=== PATIENT | female | born 1930 | race Caucasian/White ===

== ENCOUNTER 2017-02-09 13:17 | Inpatient (IN) ==
[2017-02-09] MEDS ORDERED: *HR* HYDROmorphone (PF) 1 MG/ML SYRINGE IVP ONE ×2 (13:31→14:15)
[2017-02-09] MEDS ORDERED: Ondansetron 4 MG/2 ML VIAL IVP ONE ×2 (13:31→15:01)
[2017-02-09] MEDS ORDERED: 0.9 % Sodium Chloride 1,000 ML IVC ONE (13:31)
--- NOTE | 2017-02-09 13:34 | Emergency Department Note ---
Disposition Clinical Impression: Ureterolithiasis Hydronephrosis Qualifiers: Hydronephrosis type: with ureteral calculous obstruction Qualified Code(s): N13.2 - Hydronephrosis with renal and ureteral calculous obstruction Disposition: Admitted As Inpatient Condition: Good Referrals: Marcos Cornell MD [Primary Care Provider] - Forms: Work/School Release, ED Satisfaction Letter Abdominal Pain HPI - General Chief Complaint: ED Abdominal Pain Stated Complaint: R flank pain, N/V Time Seen by Provider: 02/09/17 13:24 Source: patient Mode of arrival: wheelchair Limitations: no limitations Nursing Notes Reviewed: Yes Vital Signs Reviewed: Yes - History of Present Illness HPI Narrative: 86-year-old female history of vitamin D deficiency, previous kidney stone who presents to the ER with a chief complaint of back, right flank and right-sided abdominal pain with nausea and vomiting. Patient reports she woke up this morning to go to [employer] and started having right-sided back pain that wrapped around into her right abdomen. She was nauseated and had vomiting at that time. She denies any recent illnesses or fevers. No sick contacts. No history of intra-abdominal surgery. She does report a history of kidney stones many years ago. She denies any change in her bowel or bladder function or dysuria, hematuria or change in frequency. No other complaints. Pt Subjective Complaint: abdominal pain, flank pain Onset (ago): hour(s) Consistency: constant Location: R flank Pain Severity: severe Pain Scale: 10 Quality: other (Pain) Radiation: RLQ Improves with: nothing Worsens with: other (Palpation) Associated symptoms: Reports: nausea, vomiting. Denies: diarrhea, fever, dysuria Treatments prior to arrival: NSAIDs - Related Data Home Medications Medication Instructions Recorded Confirmed Calcium Carbonate/Vitamin D3 1 each PO DAILY 12/09/16 12/09/16 [Calcium 600-Vit D3 200 Tablet] Fexofenadine HCl 180 mg PO DAILY PRN 12/09/16 12/09/16 Fluticasone Propionate Nasal 50 mcg NS DAILY PRN 12/09/16 12/09/16 [Flonase] Ibuprofen [Advil] 200 mg PO 1-2XD PRN 12/09/16 12/09/16 Previous Rx's Medication Instructions Recorded Meclizine HCl [Bonine] 25 mg PO TID PRN #30 tab 11/20/15 Azithromycin [Azithromycin 6-Tab 250 mg PO DAILY #6 tab 12/09/16 Pack] Meclizine [Antivert] 25 mg PO TID PRN #30 tablet 12/09/16 Ondansetron ODT [Zofran ODT] 4 mg SL Q8HR PRN #9 tab.rapdis 12/09/16 Allergies Allergy/AdvReac Type Severity Reaction Status Date / Time No Known Allergies Allergy Verified 11/20/15 10:31 All systems ED: reviewed and negative except as stated. Constitutional: Denies: fever Cardiovascular: Denies: chest pain Respiratory: Denies: dyspnea Gastrointestinal: Reports: abdominal pain, nausea, vomiting. Denies: diarrhea Genitourinary: Denies: urgency, dysuria, frequency, hematuria Musculoskeletal: Reports: back pain (Right flank) Abdominal Pain PMH - Past Medical History Medical history: Reports: other Female Surgical History: Reports: no surgical history - Social History Smoking status: Never smoker Alcohol use: Reports: none Drug use: Reports: none Physical Exam - General Limitations: no limitations General appearance: alert, in no apparent distress - Head Head exam: atraumatic, normocephalic, normal inspection - Eye Eye exam: Present: normal appearance, EOMI - ENT ENT exam: normal exam - Neck Neck exam: Present: normal inspection - Chest Chest inspection: Present: normal inspection, symmetric chest wall rise - Respiratory Respiratory exam: Present: normal lung sounds bilaterally - Cardiovascular Cardiovascular exam: Present: regular rate, normal rhythm, normal heart sounds - Abdominal Exam Abdominal exam: Present: soft, tenderness (Tenderness to palpation in the right lower quadrant and right midabdomen), other (Tenderness to palpation over the right flank). Absent: distention, guarding, rigidity - Extremities Exam Extremities exam: Present: normal inspection, full ROM - Expanded Upper Extremity Exam Shoulder exam: Present: normal inspection, full ROM Arm exam: Present: normal inspection, full ROM Elbow exam: Present: normal inspection, full ROM Forearm/Wrist exam: Present: normal inspection, full ROM Hand exam: Present: normal inspection, full ROM - Expanded Lower Extremity Exam Hip/Pelvis exam: Present: normal inspection, full ROM Upper leg exam: Present: normal inspection, full ROM Knee exam: Present: normal inspection, full ROM Lower leg exam: Present: normal inspection, full ROM Ankle exam: Present: normal inspection, full ROM Foot/toe exam: Present: normal inspection, full ROM - Back Exam Back exam: Present: CVA tenderness (R) - Neurological Exam Neurological exam: Present: alert - Psychiatric Psychiatric exam: Present: normal affect, normal mood - Skin Skin exam: Present: warm, dry, intact, normal color Course Course Narrative: Patient seen and examined. Vital signs reviewed. Her pain is right flank and right sided abdominal pain. She had vomited prior to me walking into the room. We will get a CT scan of the abdomen and pelvis as well as labs and urinalysis. We will give her IV fluids pain medication and some nausea medication. Disposition pending. - Reevaluation(s) Reevaluation #1: Patient still having pain after her first dose of Dilaudid. Patient was reordered additional pain medication. CT scan shows an 8 mm stone at the UVJ causing significant [place]. We will discuss with urology and will likely have to admit the patient for pain control. - Consultations Consultation #1: Discussed this case with the on-call urologist Dr. Treadwell. Reported her renal stone is 8 mm at the UVJ. Renal function normal. She has continued to have pain despite multiple rounds of IV narcotics. She has had multiple episodes of vomiting requiring Zofran as well. Patient is accepted to Dr. Treadwell's service. Request to keep her NPO for now. Dr. Treadwell called back and will be in to the emergency department to evaluate the patient for potential operative intervention today. Request a preoperative EKG. Vital Signs Temperature 97.8 F 02/09/17 13:18 Pulse Rate 59 02/09/17 13:18 Respiratory Rate 18 02/09/17 13:18 Blood Pressure 176/74 02/09/17 13:18 O2 Sat by Pulse Oximetry 96 02/09/17 13:18 Temperature 97.8 F 02/09/17 13:18 Pulse Rate 66 02/09/17 14:40 Respiratory Rate 16 02/09/17 14:40 Blood Pressure 145/93 02/09/17 14:40 O2 Sat by Pulse Oximetry 97 02/09/17 14:40 Oxygen Delivery Oxygen Delivery Nasal Cannula Abdominal Pain - MDM Narrative Medical decision making narrative: 86-year-old female presents to the ER due to right flank pain and back pain that started this morning abruptly. Her CT scan here shows an 8 mm stone at the right UVJ. Creatinine is within normal limits. She urinated without collecting a sample so we gave her dose of Rocephin and we will continue to attempt to re-collect a urine. Her pain was poorly controlled despite receiving IV narcotics. Patient admitted to the urologist service for further management. - Lab Data Lab results reviewed: Yes I reviewed the patient's lab results. Result diagrams: 02/09/17 13:35 02/09/17 13:35 Lab Results 02/09/17 02/09/17 Range/Units 13:35 13:35 WBC 11.7 H (4.3-11.1) K/mcL RBC 4.71 (3.82-4.97) M/mcL Hgb 13.8 (11.5-15.4) g/dL Hct 42.7 (35.3-44.9) % MCV 90.7 (83.0-100.0) fL MCH 29.3 (28.0-33.3) pg MCHC 32.3 (31.6-35.5) g/dL RDW 12.7 (11.5-14.5) % Plt Count 260 (140-400) K/mcL MPV 10.0 (9.4-12.4) fL Immature Gran % 0.3 (0-4) % Seg Neutrophils % 88.9 % Lymphocytes % 6.2 % Monocytes % 4.1 % Eosinophils % 0.3 % Basophils % 0.2 % Neutrophils # 10.4 H (1.6-8.9) K/mcL Lymphocytes # 0.7 (0.6-4.6) K/mcL Monocytes # 0.5 (0.0-1.3) K/mcL Eosinophils # 0.0 (0.0-0.6) K/mcL Basophils # 0.0 (0.0-0.2) K/mcL Sodium 141 (136-145) mEq/L Potassium 4.1 (3.5-4.5) mEq/L Chloride 106 (98-109) mEq/L Carbon Dioxide 24 (19-29) mEq/L BUN 23 H (7-20) mg/dL Creatinine 0.90 (0.57-1.11) mg/dL Est GFR ( Amer) > 60 (> 60) Est GFR (Non-Af Amer) 59 L (> 60) BUN/Creatinine Ratio 26 (6-26) Glucose 125 H (70-99) mg/dL Calculated Osmolality 297 (280-300) Calcium 9.6 (8.6-10.8) mg/dL Total Bilirubin 0.6 (0.2-1.2) mg/dL Direct Bilirubin 0.2 (0.0-0.5) mg/dL Indirect Bilirubin 0.4 (0.0-1.2) mg/dL AST 21 (5-34) Units/L ALT 16 (0-55) Units/L Alkaline Phosphatase 68 (38-126) Units/L Serum Total Protein 7.0 (6.0-8.3) g/dL Albumin 4.1 (3.5-5.0) g/dL Globulin 2.9 (2.4-3.5) g/dL Albumin/Globulin Ratio 1.4 (1.1-2.2) Lipase 31 (8-78) Units/L - Radiology Data Radiology results reviewed: Yes I reviewed the patient's radiology results. Abdomen/Pelvis CT 02/09/17 13:32 IMPRESSION: 8 mm calculus in the distal right ureter causing moderate to severe right hydroureteronephrosis. Several additional nonobstructing calculi in the right kidney. Few nonobstructing calculi in the left kidney. Severe sigmoid diverticulosis without diverticulitis. Bilateral pars defects at L4 with grade 2 spondylolisthesis. Normal appendix. D/ / Toño Dixon MD / Toño Dixon MD Interpreting Provider: Toño Dixon MD - EKG Data EKG attestation: Yes I reviewed and interpreted this EKG. EKG results narrative: EKG demonstrates sinus rhythm with a rate of 72 bpm. Normal axis. WA interval 161 QRS duration [address] elevations or depressions. No acute ischemic findings. S.B.A.R. - S.B.A.R. Situation: Demographics, MOA Background: Presenting Complaint, Relevant PMH, Meds, & Allergies Assessment: Vital Signs, Course and respsone to treatment, Exam Concerns, Patient/Family Expectation, Pertinant Lab Results, Outstanding Labs Recommendation: Barrier(s) to disposition, Recommendation based on pending studies, treatments, or consults S.B.A.R. Report Given to: Dr. Eben Boyd Repor Time: 15:12 Attestation Statement - Attestation Attestation: I examined this patient and my medical decision-making was reviewed with the OPTICAL MECHANIC APPRENTICE/PA/Advanced Practice Nurse/Resident Physician. I agree with the documented findings, disposition and treatment plan as described except to the extent set forth below.
[2017-02-09 13:44] LABS: Basophils % 0.2 %; Eosinophils % 0.3 %; Hematocrit 42.7 % (35.3-44.9); Hemoglobin 13.8 g/dL (11.5-15.4); Immature Granulocytes % 0.3 % (0-4); Lymphocytes # 0.7 K/mcL (0.6-4.6); Lymphocytes % 6.2 %; Mean Corpuscular HGB Conc 32.3 g/dL (31.6-35.5); Mean Corpuscular Hemoglobin 29.3 pg (28.0-33.3); Mean Corpuscular Volume 90.7 fL (83.0-100.0); Monocytes # 0.5 K/mcL (0.0-1.3); Monocytes % 4.1 %; Neutrophils # 10.4 K/mcL (1.6-8.9); Platelet Count 260 K/mcL (140-400); Red Blood Count 4.71 M/mcL (3.82-4.97); Red Cell Distribution Width 12.7 % (11.5-14.5); Segmented Neutrophils % 88.9 %
[2017-02-09 13:59] LABS: Alanine Aminotransferase 16 Units/L (0-55); Albumin 4.1 g/dL (3.5-5.0); Albumin/Globulin Ratio 1.4 (1.1-2.2); Alkaline Phosphatase 68 Units/L (38-126); Aspartate Amino Transferase 21 Units/L (5-34); BUN/Creatinine Ratio 26 (6-26); Bilirubin,Direct 0.2 mg/dL (0.0-0.5); Bilirubin,Indirect 0.4 mg/dL (0.0-1.2); Bilirubin,Total 0.6 mg/dL (0.2-1.2); Blood Urea Nitrogen 23 mg/dL (7-20); Calcium 9.6 mg/dL (8.6-10.8); Carbon Dioxide 24 mEq/L (19-29); Chloride 106 mEq/L (98-109); Globulin 2.9 g/dL (2.4-3.5); Glucose 125 mg/dL (70-99); Lipase 31 Units/L (8-78); Osmolality,Calculated 297 (280-300); Potassium 4.1 mEq/L (3.5-4.5); Sodium 141 mEq/L (136-145); eGFR For African Americans > 60 (> 60); eGFR For Non-African Americans 59 (> 60)
--- NOTE | 2017-02-09 16:01 | Urology History & Physical ---
Date of Encounter: 02/09/17 Time of Encounter: 15:59 Assessment and Plan (1) Ureteral stone with hydronephrosis Current Visit: Yes Status: Acute The patient's symptoms are severe and have been difficult to control despite Dilaudid and anti-emetics. Due to the severity of her symptoms in the emergency room we have elected to proceed to the operating room today for ureteral stent placement. The family understands that she will require a second procedure for stone removal. She will be observed overnight to verify her symptoms are better controlled prior to discharge. History of Present Illness Chief complaint: Right flank pain HPI: Ms. Caballero is a 86 year old female with a distant history of kidney stones. Presents the emergency room with severe flank pain and nausea vomiting. CT scan reveals an 8 mm ureteral calculi with hydronephrosis. White cell count at 11, 000. Renal function preserved. Difficult to control symptoms in the emergency room Past Med Surg Social Fam HX - Past Medical History Medical history: other - Social History Smoking Status: Never smoker Smokeless Tobacco Status: No Alcohol use: none Drug use: none Medications and Allergies Meclizine HCl [Bonine] 25 mg PO TID PRN #30 tab 11/20/15 [Rx] Azithromycin [Azithromycin 6-Tab Pack] 250 mg PO DAILY #6 tab 12/09/16 [Rx] Calcium Carbonate/Vitamin D3 [Calcium 600-Vit D3 200 Tablet] 1 each PO DAILY [History] Fexofenadine HCl 180 mg PO DAILY PRN 12/09/16 [History] Fluticasone Propionate Nasal [Flonase] 50 mcg NS DAILY PRN 12/09/16 [History] Ibuprofen [Advil] 200 mg PO 1-2XD PRN 12/09/16 [History] Meclizine [Antivert] 25 mg PO TID PRN #30 tablet 12/09/16 [Rx] Ondansetron ODT [Zofran ODT] 4 mg SL Q8HR PRN #9 tab.rapdis 12/09/16 [Rx] Allergies No Known Allergies Allergy (Verified 11/20/15 10:31) Review of Systems - Constitutional fatigue, malaise, weakness, no fever(s) - EENT Nose, mouth and throat: as per HPI, no dizziness - Cardiovascular no chest pain - Respiratory no cough - Gastrointestinal abdominal pain, nausea, vomiting - Genitourinary Genitourinary: dysuria, flank pain - Musculoskeletal back pain - Integumentary no erythema - Neurological no confusion - Psychiatric no anxiety - Hematologic/Lymphatic no easy bleeding - Allergic/Immunologic no throat swelling Exam Initial Vital Signs Temp Pulse Resp BP Pulse Ox 97.8 F 59 18 176/74 96 02/09/17 13:18 02/09/17 13:18 02/09/17 13:18 02/09/17 13:18 02/09/17 13:18 - General physical appearance Present: moderate distress, severe pain - Eyes Present: PERRL - ENT Present: normal nares - Neck Present: no masses - Respiratory Present: normal respiratory effort - Cardiovascular Cardiovascular exam IM: RRR - Abdomen Abdomen: Present: soft - Integumentary Present: no rash - Neurologic Present: other (to weak to sign consent). Absent: disoriented, confused Urology Results - Labs 02/09/17 13:35 02/09/17 13:35 Abnormal lab results WBC 11.7 K/mcL (4.3-11.1) H 02/09/17 13:35 Neutrophils # 10.4 K/mcL (1.6-8.9) H 02/09/17 13:35 BUN 23 mg/dL (7-20) H 02/09/17 13:35 Est GFR (Non-Af Amer) 59 (> 60) L 02/09/17 13:35 Glucose 125 mg/dL (70-99) H 02/09/17 13:35 Diabetes panel 02/09/17 Range/Units 13:35 Sodium 141 (136-145) mEq/L Potassium 4.1 (3.5-4.5) mEq/L Chloride 106 (98-109) mEq/L Carbon Dioxide 24 (19-29) mEq/L BUN 23 H (7-20) mg/dL Creatinine 0.90 (0.57-1.11) mg/dL Glucose 125 H (70-99) mg/dL Calcium 9.6 (8.6-10.8) mg/dL AST 21 (5-34) Units/L ALT 16 (0-55) Units/L Alkaline Phosphatase 68 (38-126) Units/L Albumin 4.1 (3.5-5.0) g/dL Calcium panel 02/09/17 Range/Units 13:35 Calcium 9.6 (8.6-10.8) mg/dL Albumin 4.1 (3.5-5.0) g/dL Pituitary panel 02/09/17 Range/Units 13:35 Sodium 141 (136-145) mEq/L Potassium 4.1 (3.5-4.5) mEq/L Chloride 106 (98-109) mEq/L Carbon Dioxide 24 (19-29) mEq/L BUN 23 H (7-20) mg/dL Creatinine 0.90 (0.57-1.11) mg/dL Glucose 125 H (70-99) mg/dL Calcium 9.6 (8.6-10.8) mg/dL Adrenal panel 02/09/17 Range/Units 13:35 Sodium 141 (136-145) mEq/L Potassium 4.1 (3.5-4.5) mEq/L Chloride 106 (98-109) mEq/L Carbon Dioxide 24 (19-29) mEq/L BUN 23 H (7-20) mg/dL Creatinine 0.90 (0.57-1.11) mg/dL Glucose 125 H (70-99) mg/dL Calcium 9.6 (8.6-10.8) mg/dL Total Bilirubin 0.6 (0.2-1.2) mg/dL AST 21 (5-34) Units/L ALT 16 (0-55) Units/L Alkaline Phosphatase 68 (38-126) Units/L Albumin 4.1 (3.5-5.0) g/dL All other labs normal.
[2017-02-09 16:04] LABS: Bilirubin,Urine Negative (Negative); Blood,Urine Trace (Negative); Clarity,Urine Clear (Clear); Color,Urine Yellow (Yellow); Glucose,Urine (UA) Normal (Normal); Ketones,Urine Trace mg/dL (Negative); Leukocyte Esterase,Urine Trace (Negative); Nitrite,Urine Negative (Negative); PH,Urine 7.5 pH Units (5.0-8.0); Protein,Urine Negative (Neg-Trace); Specific Gravity,Urine 1.012 (1.010-1.025); Urobilinogen,Urine Normal (Normal)
[2017-02-09 16:07] LABS: Bacteria,Urine Many per hpf (None-Few); Hyaline Casts,Urine None Seen per lpf (None-Few); Squamous Epithelial Cell,Urine Few per lpf (None-Few)
--- NOTE | 2017-02-09 16:19 | Anesthesia Evaluation PreOp ---
Date of Encounter: 02/09/17 Time of Encounter: 16:20 - Past History Planned Operation: Cystoscopy and Stent Ureteral Cardiac History: Denies any Significant Hx Pulmonary History: Denies Any Significant HX HAIR SPECIALIST History: Other (Vertigo) Other Medical History: Other (Extreme of age) Anesthesia History: No Prior Anesthetic Complications : No Alcohol Use: none Drug use: none Medications and Allergies Meclizine HCl [Bonine] 25 mg PO TID PRN #30 tab 11/20/15 [Rx] Azithromycin [Azithromycin 6-Tab Pack] 250 mg PO DAILY #6 tab 12/09/16 [Rx] Calcium Carbonate/Vitamin D3 [Calcium 600-Vit D3 200 Tablet] 1 each PO DAILY [History] Fexofenadine HCl 180 mg PO DAILY PRN 12/09/16 [History] Fluticasone Propionate Nasal [Flonase] 50 mcg NS DAILY PRN 12/09/16 [History] Ibuprofen [Advil] 200 mg PO 1-2XD PRN 12/09/16 [History] Meclizine [Antivert] 25 mg PO TID PRN #30 tablet 12/09/16 [Rx] Ondansetron ODT [Zofran ODT] 4 mg SL Q8HR PRN #9 tab.rapdis 12/09/16 [Rx] Allergies No Known Allergies Allergy (Verified 11/20/15 10:31) - Meds/Allergy Pre-op Review Medications Reviewed: Yes Allergies Reviewed: Yes Beta Blockers on Current Med List: No Anesthesia Results - Labs 02/09/17 13:35 02/09/17 13:35 Anesthesia Exam O2 Sat Height 1.52 m Weight 46.266 kg O2 Sat by Pulse Oximetry 97 O2 Sat by Pulse Oximetry 97 O2 Sat by Pulse Oximetry 96 Vital Signs Temp Pulse Resp BP Pulse Ox 97.8 F 59 18 176/74 96 02/09/17 13:18 02/09/17 13:18 02/09/17 13:18 02/09/17 13:18 02/09/17 13:18 Height: 5'0 Weight: 102 lbs NPO (# of Hours): MN Pain Scale: 0 - HEENT Pupil (Motor): Pupils equal, EOMI Mallampati: III Teeth: Normal Oral Opening: Less than or equal to 3 - HAIR SPECIALIST LOC: Oriented HAIR SPECIALIST Motor: Normal RUE, Normal LUE, Normal RLE, Normal LLE, Normal Face HAIR SPECIALIST Sensory: Normal: RUE, LUE, RLE, LLE, Face - Cardiac Rhythm: Regular Murmur: None JVD: No Carotid Bruit: No - Pulmonary Breath Sounds: bilateral Clear Respiratory Effort: Symmetrical Anesthesia Assess/Plan ASA Score: 2, E Modified Mellen Scale for Level of Consciousness: Cooperative, oriented, and tranquil Anesthetic Plan: General Monitoring Plan: Standard Monitors Recovery Plan: PACU (Discussed GA, agrees to proceed)
[2017-02-09] MEDS ORDERED: Lidocaine -MPF 2% 2 ML VIAL ONE (16:23)
[2017-02-09] MEDS ORDERED: *HR* FentaNYL (PF) 100 MCG/2 ML VIAL ONE (16:23)
[2017-02-09] MEDS ORDERED: *HR* Succinylcholine 200 MG/10 ML VIAL IVP ONE (16:23)
[2017-02-09] MEDS ORDERED: *HR* Propofol 200 MG/20 ML VIAL IVP ONE (16:23)
[2017-02-09] MEDS ORDERED: Ondansetron 4 MG/2 ML VIAL ONE (16:23)
[2017-02-09] MEDS ORDERED: Lidocaine -MPF 4% 5 ML AMPUL ONE (16:24)
--- NOTE | 2017-02-09 17:24 | Anesthesia Evaluation Post Op ---
Date of Encounter: 02/09/17 Time of Encounter: 17:30 - Vital Signs Vital Signs: Vital Signs/O2 Sat/Glucose, Most Current Temp Pulse Resp BP Pulse Ox 02/09/17 17:12 105 12 164/84 94 02/09/17 17:02 101.5 F H 110 12 167/94 96 02/09/17 16:12 18 154/76 02/09/17 14:40 66 16 145/93 97 02/09/17 13:53 70 18 167/80 97 - Lungs Lungs: Clear Ascult./Percussion - Airway Airway: Non-obstructed - Cardiovascular Regular Rate - Mental Status Mental Status: Alert & Oriented, Answers Appropriately - Pain Pain Scale: 0 - Nausea Vomiting Nausea Vomiting: Not Present - Hydration Hydration: NPO - Discharge PostOp Status: Transfer Patient to floor
[2017-02-09] MEDS ORDERED: Ondansetron 4 MG/2 ML VIAL IVP PRN (17:54)
[2017-02-09] MEDS ORDERED: Ketorolac 15 MG/ML VIAL IVP PRN (17:54)
[2017-02-09] MEDS ORDERED: Naloxone 0.4 MG/ML INJ IVP PRN (17:54)
[2017-02-09] MEDS ORDERED: Loratadine 10 MG TABLET PO PRN (17:54)
[2017-02-09] MEDS ORDERED: *HR* HYDROcodone/Acet 5/325 mg TABLET PO PRN (17:54)
[2017-02-09] MEDS ORDERED: *HR* Morphine 2 MG/ML SYRINGE IVP PRN (17:54)
[2017-02-09] MEDS ORDERED: *HR* Promethazine 25 MG/ML VIAL IVP PRN (17:54)
[2017-02-09] MEDS ORDERED: *HR* HYDROmorphone (PF) 1 MG/ML SYRINGE IVP PRN (17:54)
[2017-02-09] MEDS: 0.9 % Sodium Chloride 500 ML ONE ×2 (18:13→19:20)
[2017-02-09] MEDS ORDERED: Ibuprofen 400 MG TABLET PO PRN (18:24)
[2017-02-09] MEDS: 0.9 % Sodium Chloride 1,000 ML IVC SCH (18:58)
[2017-02-09] MEDS: Acetaminophen 325 MG TABLET PO PRN (19:02)
--- NOTE | 2017-02-09 20:57 | Operative Note ---
Date of procedure: 02/09/17 Pre-op diagnosis: Right ureteral calculi with hydronephrosis Post-op diagnosis: same Procedure: Cystoscopy. Right retrograde pyelogram. Right ureteral stent placement Anesthesia: GETA Surgeon: Fede Treadwell Tourniquet Time (Minutes): 0 Specimen: None Condition: stable Disposition: PACU Procedure in Detail: s. PROCEDURE IN DETAIL: Patient was taken back to the operating room, positioned supine on the operating table. Anesthesia was applied without complication. They were moved into dorsal lithotomy. Careful attention was maintained to cushion all pressure points for patient's safety. They were prepped and draped in sterile fashion. Time-out was performed with the proper patient and procedure. A 21-Lithuanian rigid cystoscope was inserted into the bladder without difficulty. Systematic examination of bladder revealed no abnormalities. The ureteral orifice was cannulated using a 5-Lithuanian ureteral Catheter and a retrograde pyelogram was performed using Isovue. Significant hydroureter was seen down to the distal ureter. A large amount of purulent material drained from the right ureteral orifice after placement of the ureteral cath. At that point, a zip wire was placed through the 5-Lithuanian and confirmed in the renal pelvis with fluoroscopy. I placed a 6x26 Ureteral stent over the zip wire. She had a very tortuous proximal ureter from hydroureter and the stent actually looped. A follow-up retrograde pyelogram confirmed that the stent was in the renal pelvi
[2017-02-10 03:32] LABS: Hematocrit 36.1 % (35.3-44.9); Mean Corpuscular HGB Conc 32.4 g/dL (31.6-35.5); Mean Corpuscular Hemoglobin 29.6 pg (28.0-33.3); Mean Corpuscular Volume 91.4 fL (83.0-100.0); Mean Platelet Volume 10.4 fL (9.4-12.4); Platelet Count 157 K/mcL (140-400); Red Blood Count 3.95 M/mcL (3.82-4.97)
[2017-02-10 03:34] LABS: Hemoglobin 11.7 g/dL (11.5-15.4)
[2017-02-10 04:08] LABS: Large Platelets Present (Not Present); Lymphocytes # 0.3 K/mcL (0.6-4.6); Monocytes # 0.3 K/mcL (0.0-1.3); Neutrophils # 16.4 K/mcL (1.6-8.9); Platelet Estimate Normal (Normal)
[2017-02-10] MEDS: 0.9 % Sodium Chloride 1,000 ML IVC SCH ×3 (06:56→19:55)
[2017-02-10] MEDS ORDERED: Promethazine 12.5 MG in 0.9 % Sodium Chloride 50 ML IVPB PRN (07:02)
--- NOTE | 2017-02-10 07:02 | Urology Progress Note ---
Date of Encounter: 02/10/17 Time of Encounter: 07:00 - Assessment and Plan (1) Ureteral stone with hydronephrosis Current Visit: Yes Status: Resolved Assessment and plan: s/p stent placement. low grade temperature overnight. WBC increased. acute renal insufficiency. patient not stable for discharge. continue IVF. continue ABX until culture returns. PT/OT. vitals stable this AM. Progress Note Subjective: feels better, pain is less, nausea (minimal nausea. ) Objective Initial Vital Signs Temp Pulse Resp BP Pulse Ox 97.8 F 59 18 176/74 96 02/09/17 13:18 02/09/17 13:18 02/09/17 13:18 02/09/17 13:18 02/09/17 13:18 - General physical appearance Present: well developed, no distress - Abdomen Present: soft - Labs 02/10/17 03:05 02/10/17 03:05 Diabetes panel 02/10/17 Range/Units 03:05 Sodium 141 (136-145) mEq/L Potassium 3.0 L D (3.5-4.5) mEq/L Chloride 110 H (98-109) mEq/L Carbon Dioxide 21 (19-29) mEq/L BUN 25 H (7-20) mg/dL Creatinine 1.23 H (0.57-1.11) mg/dL Glucose 101 H (70-99) mg/dL Calcium 8.0 L D (8.6-10.8) mg/dL Calcium panel 02/10/17 Range/Units 03:05 Calcium 8.0 L D (8.6-10.8) mg/dL Pituitary panel 02/10/17 Range/Units 03:05 Sodium 141 (136-145) mEq/L Potassium 3.0 L D (3.5-4.5) mEq/L Chloride 110 H (98-109) mEq/L Carbon Dioxide 21 (19-29) mEq/L BUN 25 H (7-20) mg/dL Creatinine 1.23 H (0.57-1.11) mg/dL Glucose 101 H (70-99) mg/dL Calcium 8.0 L D (8.6-10.8) mg/dL Adrenal panel 02/10/17 Range/Units 03:05 Sodium 141 (136-145) mEq/L Potassium 3.0 L D (3.5-4.5) mEq/L Chloride 110 H (98-109) mEq/L Carbon Dioxide 21 (19-29) mEq/L BUN 25 H (7-20) mg/dL Creatinine 1.23 H (0.57-1.11) mg/dL Glucose 101 H (70-99) mg/dL Calcium 8.0 L D (8.6-10.8) mg/dL - VTE Documentation of Mechanical Device: Intermittent pneumatic compression device Consult Discharge Plan - Plan Referrals: Marcos Cornell MD [Primary Care Provider] -
--- NOTE | 2017-02-10 11:34 | Electrocardiograph Report ---
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
[2017-02-10] MEDS: Acetaminophen 325 MG TABLET PO PRN (13:14)
[2017-02-11 05:47] LABS: Hematocrit 35.5 % (35.3-44.9); Hemoglobin 11.4 g/dL (11.5-15.4); Mean Corpuscular HGB Conc 32.1 g/dL (31.6-35.5); Mean Corpuscular Hemoglobin 29.4 pg (28.0-33.3); Mean Corpuscular Volume 91.5 fL (83.0-100.0); Mean Platelet Volume 11.3 fL (9.4-12.4); Platelet Count 126 K/mcL (140-400); Red Blood Count 3.88 M/mcL (3.82-4.97); Red Cell Distribution Width 13.7 % (11.5-14.5)
[2017-02-11] MEDS: 0.9 % Sodium Chloride 1,000 ML IVC SCH (06:00)
[2017-02-11 06:03] LABS: Calcium 7.8 mg/dL (8.6-10.8); Potassium 3.9 mEq/L (3.5-4.5)
[2017-02-11 08:23] VITALS: BP 154/82
--- NOTE | 2017-02-11 08:28 | Urology Progress Note ---
Date of Encounter: 02/11/17 Time of Encounter: 08:27 - Assessment and Plan (1) Ureteral stone with hydronephrosis Current Visit: Yes Status: Resolved Assessment and plan: WBC remains elevated but stable. renal function improved, vitals stable and patient feels better. plan to discharge today. outpatient stone extraction. Progress Note Subjective: feels better Narrative: still with some nausea but close to baseline. Objective Initial Vital Signs Temp Pulse Resp BP Pulse Ox 97.8 F 59 18 176/74 96 02/09/17 13:18 02/09/17 13:18 02/09/17 13:18 02/09/17 13:18 02/09/17 13:18 - General physical appearance Present: well developed, no distress - Abdomen Present: soft - Labs 02/11/17 04:47 02/11/17 04:47 Diabetes panel 02/11/17 Range/Units 04:47 Sodium 141 (136-145) mEq/L Potassium 3.9 (3.5-4.5) mEq/L Chloride 114 H (98-109) mEq/L Carbon Dioxide 19 (19-29) mEq/L BUN 29 H (7-20) mg/dL Creatinine 1.08 (0.57-1.11) mg/dL Glucose 76 (70-99) mg/dL Calcium 7.8 L (8.6-10.8) mg/dL Calcium panel 02/11/17 Range/Units 04:47 Calcium 7.8 L (8.6-10.8) mg/dL Pituitary panel 02/11/17 Range/Units 04:47 Sodium 141 (136-145) mEq/L Potassium 3.9 (3.5-4.5) mEq/L Chloride 114 H (98-109) mEq/L Carbon Dioxide 19 (19-29) mEq/L BUN 29 H (7-20) mg/dL Creatinine 1.08 (0.57-1.11) mg/dL Glucose 76 (70-99) mg/dL Calcium 7.8 L (8.6-10.8) mg/dL Adrenal panel 02/11/17 Range/Units 04:47 Sodium 141 (136-145) mEq/L Potassium 3.9 (3.5-4.5) mEq/L Chloride 114 H (98-109) mEq/L Carbon Dioxide 19 (19-29) mEq/L BUN 29 H (7-20) mg/dL Creatinine 1.08 (0.57-1.11) mg/dL Glucose 76 (70-99) mg/dL Calcium 7.8 L (8.6-10.8) mg/dL - VTE Documentation of Mechanical Device: Intermittent pneumatic compression device Consult Discharge Plan - Plan Referrals: Marcos Cornell MD [Primary Care Provider] -
--- NOTE | 2017-02-11 08:31 | Discharge Summary ---
Date of Encounter: 02/11/17 Time of Encounter: 08:28 - Discharge Diagnosis (1) Ureteral stone with hydronephrosis Priority: Primary Status: Resolved - Discharge Medications Prescriptions: HYDROcodone/Acet 5/325 mg [[place] 5-325 mg] 1 tab PO Q6HR PRN #10 tablet PRN Reason: moderate pain. cephALEXin [Keflex] 500 mg PO BID #20 capsule Phenazopyridine [Pyridium] 100 mg PO TID PRN #20 tablet PRN Reason: burning with urination Home Medications: Calcium Carbonate/Vitamin D3 [Calcium 600-Vit D3 200 Tablet] 1 each PO DAILY [History] Fexofenadine HCl 180 mg PO DAILY PRN 12/09/16 [History] Fluticasone Propionate Nasal [Flonase] 50 mcg NS DAILY PRN 12/09/16 [History] Ibuprofen [Advil] 200 mg PO 1-2XD PRN 12/09/16 [History] Meclizine [Antivert] 25 mg PO TID PRN #30 tablet 12/09/16 [Rx] Acetaminophen [Tylenol] 325 mg PO Q6HR PRN 02/10/17 [History] Diclofenac Sodium [Voltaren] 1 appl TP QID PRN 02/10/17 [History] HYDROcodone/Acet 5/325 mg [[place] 5-325 mg] 1 tab PO Q6HR PRN #10 tablet [Rx] Phenazopyridine [Pyridium] 100 mg PO TID PRN #20 tablet 02/11/17 [Rx] cephALEXin [Keflex] 500 mg PO BID #20 capsule 02/11/17 [Rx] Allergies/Adverse Reactions: Allergies No Known Allergies Allergy (Verified 02/10/17 08:52) Labs on day of discharge: Labs from last 24 hours 02/11/17 02/11/17 04:47 04:47 WBC 17.3 H RBC 3.88 Hgb 11.4 L Hct 35.5 MCV 91.5 MCH 29.4 MCHC 32.1 RDW 13.7 Plt Count 126 L MPV 11.3 Sodium 141 Potassium 3.9 Chloride 114 H Carbon Dioxide 19 BUN 29 H Creatinine 1.08 Est GFR ( Amer) 58 L Est GFR (Non-Af Amer) 48 L BUN/Creatinine Ratio 27 H Glucose 76 Calculated Osmolality 297 Calcium 7.8 L Date of admission: 02/10/17 18:10 Primary care physician: Marcos Cornell MD Discharging clinician: Fede Treadwell Anticipated date of discharge: 02/11/17 - Patient Status Disposition: Home, Self-Care Functional capacity at discharge: independent ambulation Overall status at discharge: patient is progressing back to baseline - Discharge Instructions Follow Up With: Marcos Cornell MD [Primary Care Provider] - Fede Treadwell MD [Partnered Physician] - (my office will contact patient to schedule stone extraction. ) Additional Instructions: Expect some stent discomfort including urgency, frequency, blood/debris in the urine, burning and/or flank pain. This is normal. Call if excessive Call if fever >101 OK to take ibuprofen or Tylenol. - Diet and Activity Activity: increase activity as tolerated Diet: advance to your usual diet - Hospital Course Hospital course: Ms. Caballero is a 86 year old female admitted with a obstructing ureteral stone. s /p stent placement. feeling better able to get out of bed. renal function improved. still with some nausea but this is pts baseline. urine cx +. awaiitng final culture. WBC still elevated but overall patient feels better, vitals OK. will plan discharge today. plan outpt stone extraction. - Time Spent with Patient Total time spent providing and/or coordinating discharge services: Exam Initial Vital Signs Temp Pulse Resp BP Pulse Ox 97.8 F 59 18 176/74 96 02/09/17 13:18 02/09/17 13:18 02/09/17 13:18 02/09/17 13:18 02/09/17 13:18 - General physical appearance Present: well developed, no distress - VTE Documentation of Mechanical Device: Intermittent pneumatic compression device
== END 2017-02-11 10:59 | disposition home or self-care (01) | DRG 694 ==
LOC: EMEROO 13:17 → 3ANU 13:17
PROVIDERS: ADMIT Urology; ATTEND Urology

== ENCOUNTER 2018-02-12 17:27 | Observation (INO) ==
[2018-02-12 18:18] LABS: Basophils % 0.8 %; Eosinophils # 0.2 K/mcL (0.0-0.6); Eosinophils % 3.5 %; Hematocrit 41.2 % (35.3-44.9); Hemoglobin 13.9 g/dL (11.5-15.4); Immature Granulocytes % 0.2 % (0-4); Lymphocytes # 1.2 K/mcL (0.6-4.6); Lymphocytes % 22.3 %; Mean Corpuscular HGB Conc 33.7 g/dL (31.6-35.5); Mean Corpuscular Hemoglobin 30.5 pg (28.0-33.3); Mean Corpuscular Volume 90.5 fL (83.0-100.0); Mean Platelet Volume 10.1 fL (9.4-12.4); Monocytes # 0.4 K/mcL (0.0-1.3); Monocytes % 8.5 %; Neutrophils # 3.3 K/mcL (1.6-8.9); Platelet Count 251 K/mcL (140-400); Red Blood Count 4.55 M/mcL (3.82-4.97); Red Cell Distribution Width 12.8 % (11.5-14.5); Segmented Neutrophils % 64.7 %
[2018-02-12 18:23] LABS: Prothrombin Time 10.8 Seconds (9.4-12.1)
[2018-02-12 18:26] LABS: Activated Partial Thrombo Time 30.1 Seconds (26.0-36.0)
[2018-02-12 18:42] LABS: BUN/Creatinine Ratio 24 (6-26); Blood Urea Nitrogen 18 mg/dL (8-23); Calcium 9.4 mg/dL (8.6-10.3); Carbon Dioxide 25 mEq/L (23-29); Chloride 111 mEq/L (98-107); Glucose 87 mg/dL (70-105); Osmolality,Calculated 299 (280-300); Potassium 3.8 mEq/L (3.5-5.1); Sodium 144 mEq/L (136-145); eGFR For African Americans > 60 (> 60); eGFR For Non-African Americans > 60 (> 60)
[2018-02-12 18:43] LABS: Troponin I < 0.03 ng/mL (< 0.04)
--- NOTE | 2018-02-12 18:45 | Emergency Department Note ---
Disposition Clinical Impression: Slurred speech, Neurological deficit present Disposition: Admitted As Inpatient Condition: Fair Time of Disposition: 20:04 General Adult HPI - General Chief complaint: ED Neuro Symptoms/Deficit Stated complaint: headache,slurred speech Time Seen by Provider: 02/12/18 17:48 Source: patient, family Limitations: no limitations Nursing Notes Reviewed: Yes Vital Signs Reviewed: Yes - History of Present Illness HPI Narrative: Patient is a 87-year-old female that presents the emergency department with headache and dizziness. Patient states that she has a history of Meniere's disease and this feels just like when she has had previous issues with her Meniere's disease. Patient states that she gets a headache and feels dizzy and off balance when her Meniere's disease acts up. The son was at bedside stating that he had concern because when she called this morning she sounded like she had some mildly slurred speech. Patient states that all of her symptoms began approximately at 0430 this morning. Patient denies any worsening of her symptoms and states that she has no other numbness, weakness or tingling that is new at this time. Pain Scale: 7 - Related Data Home Medications Medication Instructions Recorded Confirmed Fluticasone Propionate 2 spr NS DAILY 02/12/18 02/12/18 Montelukast [Singulair] 10 mg PO DAILY 02/12/18 02/12/18 Omeprazole [PriLOSEC] 40 mg PO DAILY PRN 02/12/18 02/12/18 Allergies Allergy/AdvReac Type Severity Reaction Status Date / Time No Known Allergies Allergy Verified 01/03/18 12:01 All systems ED: reviewed and negative except as stated. Cardiovascular: Denies: chest pain Respiratory: Denies: dyspnea Neurological: Reports: headache, other (dizziness) Past Medical History - Past Medical History Medical history: Reports: kidney stones Surgical history: Reports: non-contributory, orthopedic, other, other Psychiatric history: Reports: no psych history - Social History Smoking Status: Never smoker Smokeless Tobacco Status: No Alcohol use: Reports: none Drug use: Reports: none Physical Exam - General Limitations: no limitations General appearance: alert, in no apparent distress - Head Head exam: atraumatic, normocephalic - Eye Eye exam: Present: normal appearance, EOMI - Neck Neck exam: Present: normal inspection, full ROM, trachea midline - Respiratory Respiratory exam: Present: normal lung sounds bilaterally. Absent: respiratory distress, wheezes - Cardiovascular Cardiovascular exam: Present: regular rate, normal rhythm - Abdominal Exam Abdominal exam: Present: soft, Non-Tender, normal bowel sounds - Neurological Exam Neurological exam: Present: alert, oriented X3, CN II-XII intact - Expanded Neurological Exam Speech: Present: fluid speech Cranial nerves: EOM function (II, III, IV, ): Normal, facial sensation (V): Normal, facial palsy (VII): Normal, gag reflex (IX): Normal, spinal accessory function (XI): Normal, tongue deviation (XII): Normal Cerebellar function: finger to nose: Normal, heel to cisneros: Normal Motor strength - LUE: 5/5 Motor strength - RUE: 5/5 Motor strength - LLE: 5/5 Motor strength - RLE: 5/5 Upper motor neuron exam: pronator drift: Absent bilaterally Sensory exam upper extremity: light touch: Normal Sensory exam lower extremity: light touch: Normal Coma Scale Eye Opening: Spontaneous Coma Scale Motor Response: Obeys Commands Coma Scale Verbal Response: Oriented Coma Scale Total: 15 - Psychiatric Psychiatric exam: Present: normal affect, normal mood - Skin Skin exam: Present: warm, dry, intact Course Vital Signs Temperature 97.9 F 02/12/18 17:29 Pulse Rate 65 02/12/18 17:29 Respiratory Rate 16 02/12/18 17:29 Blood Pressure 178/86 02/12/18 17:29 O2 Sat by Pulse Oximetry 96 02/12/18 17:29 Temperature 97.9 F 02/12/18 17:29 Pulse Rate 62 02/12/18 20:54 Respiratory Rate 18 02/12/18 20:54 Blood Pressure 165/85 02/12/18 20:54 O2 Sat by Pulse Oximetry 96 02/12/18 17:29 Oxygen Delivery Oxygen Delivery Room Air Medical Decision Making - [facility] Narrative Medical decision making narrative: Due to the patient presented to the emergency department with complaints of headache and dizziness with reports from family that they felt that earlier today she had some slurring his speech we obtained a CT of the patient's head as well as laboratory tests including a CBC, BMP, troponin and coagulation studies. The CT scan did not show any acute abnormalities. Patient's laboratory testing was unremarkable. The patient did not have an elevated troponin, anemia or any other significant laboratory findings at this time. Patient had an NIH of 1. Due to the CT scan not showing any acute findings we will give the patient a dose of aspirin here in the emergency department. Based on the patient's symptoms of slurred speech there is concern for possible neurologic deficit and stroke-related symptoms the patient will be admitted to the hospital for further evaluation and management. I called and spoke the hospitalist and he has accepted the patient to their service. The patient will be admitted to the hospital this time for further evaluation and management. - Medical Records Medical records reviewed: Yes I reviewed the patient's medical records. - Lab Data Lab results reviewed: Yes I reviewed the patient's lab results. Result diagrams: 02/12/18 18:06 02/12/18 18:06 Lab Results 02/12/18 02/12/18 02/12/18 Range/Units 17:31 18:06 18:06 WBC 5.2 (4.3-11.1) K/mcL RBC 4.55 (3.82-4.97) M/mcL Hgb 13.9 (11.5-15.4) g/dL Hct 41.2 (35.3-44.9) % MCV 90.5 (83.0-100.0) fL MCH 30.5 (28.0-33.3) pg MCHC 33.7 (31.6-35.5) g/dL RDW 12.8 (11.5-14.5) % Plt Count 251 (140-400) K/mcL MPV 10.1 (9.4-12.4) fL Immature Gran % 0.2 (0-4) % Seg Neutrophils % 64.7 % Lymphocytes % 22.3 % Monocytes % 8.5 % Eosinophils % 3.5 % Basophils % 0.8 % Neutrophils # 3.3 (1.6-8.9) K/mcL Lymphocytes # 1.2 (0.6-4.6) K/mcL Monocytes # 0.4 (0.0-1.3) K/mcL Eosinophils # 0.2 (0.0-0.6) K/mcL Basophils # 0.0 (0.0-0.2) K/mcL PT 10.8 (9.4-12.1) Seconds INR 1.0 APTT 30.1 (26.0-36.0) Seconds Sodium (136-145) mEq/L Potassium (3.5-5.1) mEq/L Chloride (98-107) mEq/L Carbon Dioxide (23-29) mEq/L BUN (8-23) mg/dL Creatinine (0.60-1.20) mg/dL Est GFR ( Amer) (> 60) Est GFR (Non-Af Amer) (> 60) BUN/Creatinine Ratio (6-26) Glucose (70-105) mg/dL POC Glucose 91 (70-99) mg/dL Calculated Osmolality (280-300) Calcium (8.6-10.3) mg/dL Troponin I (< 0.04) ng/mL 02/12/18 Range/Units 18:06 WBC (4.3-11.1) K/mcL RBC (3.82-4.97) M/mcL Hgb (11.5-15.4) g/dL Hct (35.3-44.9) % MCV (83.0-100.0) fL MCH (28.0-33.3) pg MCHC (31.6-35.5) g/dL RDW (11.5-14.5) % Plt Count (140-400) K/mcL MPV (9.4-12.4) fL Immature Gran % (0-4) % Seg Neutrophils % % Lymphocytes % % Monocytes % % Eosinophils % % Basophils % % Neutrophils # (1.6-8.9) K/mcL Lymphocytes # (0.6-4.6) K/mcL Monocytes # (0.0-1.3) K/mcL Eosinophils # (0.0-0.6) K/mcL Basophils # (0.0-0.2) K/mcL PT (9.4-12.1) Seconds INR APTT (26.0-36.0) Seconds Sodium 144 (136-145) mEq/L Potassium 3.8 (3.5-5.1) mEq/L Chloride 111 H (98-107) mEq/L Carbon Dioxide 25 (23-29) mEq/L BUN 18 (8-23) mg/dL Creatinine 0.75 (0.60-1.20) mg/dL Est GFR ( Amer) > 60 (> 60) Est GFR (Non-Af Amer) > 60 (> 60) BUN/Creatinine Ratio 24 (6-26) Glucose 87 (70-105) mg/dL POC Glucose (70-99) mg/dL Calculated Osmolality 299 (280-300) Calcium 9.4 (8.6-10.3) mg/dL Troponin I < 0.03 (< 0.04) ng/mL - Radiology Data Radiology results reviewed: Yes I reviewed the patient's radiology results. Head CT 02/12/18 17:58 IMPRESSION: No acute intracranial abnormality. Senescent changes including chronic microvascular change. D/ / Cassidy Fields MD / Cassidy Fields MD Interpreting Provider: Cassidy Fields MD Attestation Statement - Attestation Attestation: I examined this patient and my medical decision-making was reviewed with the Resident Physician, Dr. Treadwell. I agree with the documented findings, disposition and treatment plan as described except to the extent set forth below. Patient is a pleasant 87-year-old white female brought in by her son today with concerns for slurred speech. Son spoke with her on the phone at approximately 4 :30 this morning and felt that she had very slurred thickened speech difficulty understanding her over the phone. Patient has a history of Meniere's and has chronic dizziness that is worse with positional changes, ringing in her ears and occasional headaches. Patient states that these symptoms are baseline for her they have not been more worse than normal and patient's came in for evaluation because her son was concerned about her. Patient does not appreciate any new focal weakness numbness no worsening dizziness from baseline visual changes, no fevers or chills, she denies any other associated symptoms. Patient also seems to have a lid lag of the right eye that is noticeable and that the son also thinks is new. I agree with patient's physical exam findings as documented. The personally evaluated the patient at bedside and agree with findings. He should was mildly hypertensive on arrival. Based on time of onset of symptoms its well outside of the window for consideration for TPA or acute stroke alert. Patient has had no worsening symptoms and actually claims to be asymptomatic here in the emergency department. We did go ahead with neurologic and cardiac workup. Patient's EKG was negative for any ischemia. Laboratory evaluation as well as CT of the brain was unremarkable. Patient still with thickened speech at bedside, we will administer aspirin with normal head CT and plan to admit for further evaluation and neurologic consultation. Patient's family agree with this plan and case was discussed with hospitalist who accepted patient for admission.
[2018-02-12] MEDS ORDERED: Aspirin 81 MG TAB.CHEW PO STA (20:02)
--- NOTE | 2018-02-12 22:32 | Internal Med History&Physical ---
<Gabe Neville - Last Filed: 02/12/18 22:26> Date of Encounter: 02/12/18 Time of Encounter: 22:26 Internal Medicine - H&P: HPI Chief complaint: "slurred speech" Admitted From: Home Plans for Post Hospital Care: Home History of present illness: Ms. Caballero is a 87 year old female w/ no known pmh presents after son noticed a slurred speech left on a voicemail at 4:30 AM today. Patient woke up with a mild headache, sick to the stomach, tired and a "bit dizzy". She called her son and left a voicemail at 4:30 AM today. Her son was concerned for slurred speech, and went to patient's house. She did not have slurred speech upon arrival, but she continued to have symptoms. Son was concerned and decided to bring patient to [place]. Patient states that now that she's hospitalized he believes that he overreacted and probably regrets bringing her to the hospital. Patient states her symptoms have improved since being hospitalized and curently resolved. Patient does admit that she has been spending more times outside since it's gotten warmer and only consumes about 1 cup of water a day. She states this has occurred before and was told by her PCP that she had "Meniere's disease". Patient has bilateral decrease in hearing, and no ringing in the ears. Patient denies confusion, vision loss, chest pain, sob, vomiting. Past Med Surg Social Fam HX - Past Medical History Medical history: kidney stones Psychiatric history: no psych history - Past Surgical History Surgical History: non-contributory, orthopedic, other, other - Social History Smoking Status: Never smoker Smokeless Tobacco Status: No Alcohol use: none Drug use: none Internal Medicine - H&P: Meds Fluticasone Propionate 2 spr NS DAILY 02/12/18 [History] Montelukast [Singulair] 10 mg PO DAILY 02/12/18 [History] Omeprazole [PriLOSEC] 40 mg PO DAILY PRN 02/12/18 [History] 3 Allergy/AdvReac Type Severity Reaction Status Date / Time No Known Allergies Allergy Verified 01/03/18 12:01 All Systems PM: A 10-system review of systems was performed and is negative for pertinent findings except as documented above in the HPI. - Constitutional Constitutional: no chills, no fever(s), no night sweats - EENT Eyes: no change in vision, no discharge, no pain, no photophobia Ears: no ear discharge, no ear pain, no tinnitus Nose, mouth and throat: no dysphagia, no nasal discharge, no neck pain, no sore throat - Cardiovascular Cardiovascular ROS IM: no chest pain, no diaphoresis, no dyspnea, no lightheadedness, no palpitations, no syncope - Respiratory Respiratory: no cough, no dyspnea, no wheezing, no excessive phlegm production - Gastrointestinal Gastrointestinal: no abdominal pain, no diarrhea, no hematemesis, no hematochezia, no melena, no nausea, no vomiting - Genitourinary Genitourinary: no change in urinary stream, no dysuria, no flank pain, no hematuria - Musculoskeletal Musculoskeletal ROS IM: no numbness, no tingling - Integumentary Integumentary IM: no rash, no unusual bruising - Neurological Neurological ROS: no confusion, no convulsions, no focal weakness, no numbness, no tingling, no tremor(s) - Hematologic/Lymphatic Hematologic/Lymphatic: no easy bruising - Constitutional Vitals: Temp Pulse Resp BP Pulse Ox 97.6 F 59 14 167/77 94 02/12/18 21:51 02/12/18 21:51 02/12/18 21:51 02/12/18 21:51 02/12/18 21:51 General appearance: Present: cooperative, A&O X 3, no acute distress, answers questions appropriately - Head Head exam: Present: atraumatic, normocephalic - Eye Eye exam: Present: PERRL, conjuntiva pink, sclera anicteric Pupils: Present: PERRL - Neck Neck exam general surgery: Present: supple, trachea midline. Absent: lymphadenopathy - Respiratory Respiratory exam: Present: CTAB. Absent: accessory muscle use, rales, rhonchi, wheezes - Cardiovascular Cardiovascular exam: Present: RRR, +S1, +S2. Absent: diastolic murmur, gallop, rubs, systolic murmur - GI/Abdominal GI/Abdominal exam: Present: normal bowel sounds, soft, no peritoneal signs. Absent: distended, tenderness - Extremities Exam Extremities exam: Present: warm, radial pulses palpable and symmetrical. Absent : calf tenderness, cyanotic, pedal edema - Neurological Exam Neurological exam: Present: CN II-XII intact, oriented X3, no focal deficits. Absent: pronater drift, facial droop, speech deficit - Skin Skin exam: Present: dry, intact Internal Med - H&P Results - Labs CBC & Chem 7: 02/12/18 18:06 02/12/18 18:06 - Assessment and plan (1) Dizzy Current Visit: Yes Status: Acute Assessment and plan: PAtient's symptoms and history are most consistent with dehydration. Recommended to patient to increase fluid intake. Cannot rule out other neurologic causes, but patient is low risk. CT negative for bleed in ED. Patient's symptoms are not consistent for Meniere's. Will not treat for Meniere 's. - serial neuro exams - expect DC tomorrow - encourage PO intake - labetalol PRN for SBP >160 - zofran PRN for nausea (2) Dehydration Current Visit: Yes Status: Acute Assessment and plan: see above (3) Nausea Current Visit: Yes Status: Acute Assessment and plan: see above (4) Upset stomach Current Visit: Yes Status: Acute Assessment and plan: see above (5) Slurred speech Current Visit: Yes Status: Acute Assessment and plan: heard on voicemail, unwitnessed in person. (6) Tired Current Visit: Yes Status: Acute Assessment and plan: see above - Time Spent With Patient Total time spent is greater than 50% in coordination of care (as documented) at patient's floor/unit and/or counseling patient: <Naldo Soliz - Last Filed: 02/13/18 05:38> Date of Encounter: 02/12/18 Internal Medicine - H&P: HPI History of present illness: Ms. Caballero is a 87 year old female All Systems PM: A 10-system review of systems was performed and is negative for pertinent findings except as documented above in the HPI. - Constitutional Vitals: Temp Pulse Resp BP Pulse Ox 97.4 F L 61 16 146/75 95 02/13/18 04:01 02/13/18 04:01 02/13/18 04:01 02/13/18 04:01 02/13/18 04:01 Internal Med - H&P Results - Labs CBC & Chem 7: 02/12/18 18:06 02/12/18 18:06 - Attending Attestation I saw and evaluated the patient, and performed my own physical examination on . I discussed the case with the resident, and I reviewed the resident's note and agree with findings and plan as documented. Briefly, patient admitted for slurred speech. Patient is NIH 1. Patient called son this evening because she was nauseous and left him a voicemail. Son thought patient sounded like she had slurred speech on voicemail, so came to ED. Workup in ED all negative. Patient admitted for close observation of neurological status and possible TIA /CVA workup. I asked son if patient has any deficits at this time, and he says no. Slurred speech has resolved. Son states "maybe I shouldn't have brought her in." Patient has Meneire's, and takes meclizine PRN a few times a year when it acts up. She states that she does not think that this is that. She has no complaints at this time. I observe her walking to bathroom and back with no assistance. No dizziness. We will do serial neurochecks at this time. I do not think aggressive TIA/CVA workup is warranted at this time. If neurochecks reveal any new deficits, we will pursue intensive workup. Both patient and son are in agreement with plan of care. We will admit her observation. - Assessment and plan (1) Slurred speech Current Visit: Yes Status: Acute (2) Dehydration Current Visit: Yes Status: Acute (3) Nausea Current Visit: Yes Status: Acute (4) Upset stomach Current Visit: Yes Status: Acute (5) Dizzy Current Visit: Yes Status: Acute (6) Tired Current Visit: Yes Status: Acute - Time Spent With Patient Total time spent is greater than 50% in coordination of care (as documented) at patient's floor/unit and/or counseling patient:
[2018-02-12] MEDS ORDERED: *HR* Labetalol 20 MG/4 ML SYRINGE IVP PRN (22:38)
[2018-02-12] MEDS ORDERED: Ondansetron ODT 4 MG TAB.RAPDIS SL PRN (22:39)
[2018-02-12] MEDS ORDERED: Naloxone 0.4 MG/ML INJ IVP PRN (22:43)
[2018-02-13] MEDS ORDERED: Acetaminophen 325 MG TABLET PO PRN ×2 (00:15→00:19)
[2018-02-13] MEDS: *HR* Heparin 5,000 UNIT/ML VIAL SQ SCH ×2 (06:00→19:31)
[2018-02-13 06:35] LABS: Hematocrit 38.1 % (35.3-44.9); Hemoglobin 13.1 g/dL (11.5-15.4); Mean Corpuscular HGB Conc 34.4 g/dL (31.6-35.5); Mean Corpuscular Volume 90.1 fL (83.0-100.0); Mean Platelet Volume 10.3 fL (9.4-12.4); Platelet Count 247 K/mcL (140-400); Red Blood Count 4.23 M/mcL (3.82-4.97); Red Cell Distribution Width 12.9 % (11.5-14.5)
[2018-02-13 06:58] LABS: BUN/Creatinine Ratio 23 (6-26); Blood Urea Nitrogen 17 mg/dL (8-23); Calcium 8.8 mg/dL (8.6-10.3); Carbon Dioxide 26 mEq/L (23-29); Chloride 109 mEq/L (98-107); Glucose 83 mg/dL (70-105); Osmolality,Calculated 299 (280-300); Potassium 3.5 mEq/L (3.5-5.1); Sodium 144 mEq/L (136-145); eGFR For African Americans > 60 (> 60); eGFR For Non-African Americans > 60 (> 60)
[2018-02-13] MEDS ORDERED: DICLOFENAC POTASSIUM 50 MG PO ONE (13:39)
[2018-02-13] MEDS ORDERED: *HR* LORazepam 2 MG/ML VIAL IVP ONE (13:51)
--- NOTE | 2018-02-13 15:15 | Internal Med Progress Note ---
Date of Encounter: 02/13/18 Time of Encounter: 15:13 - Assessment and plan (1) Slurred speech Current Visit: Yes Status: Acute Assessment and plan: heard on voicemail, unwitnessed in person. Head CT non-acute. Brain MRI pending (2) Nausea Current Visit: Yes Status: Acute Assessment and plan: Possibly secondary to known GERD. Now resolved. Continue home PPI (3) Dizzy Current Visit: Yes Status: Acute Assessment and plan: Details unclear but patient reportedly plain to being dizzy in ED. Denies on my exam. Head CT negative. Brain MRI pending. Check ortho BPs. (4) DVT prophylaxis Current Visit: Yes Status: Acute Assessment and plan: heparin - Time Spent With Patient Total time spent is greater than 50% in coordination of care (as documented) at patient's floor/unit and/or counseling patient: - Subjective Interval history: Seen and examined at bedside. Patient is new to me, information obtained from chart review and patient report. Patient says she has [id number]. She actually denies slurred speech yesterday. Says she lives at home alone and does not have much interaction threat the day does not talk to many people therefore when she left her A Message Her Speech Have May Have Been a Little Slurred Because She Had Not Talked All Day. No Blurred Vision, no numbness or tingling, no ext weakness. - Constitutional Vitals: Temp Pulse Resp BP Pulse Ox 97.6 F 62 16 127/71 91 02/13/18 11:46 02/13/18 11:46 02/13/18 11:46 02/13/18 11:46 02/13/18 11:46 General appearance: Present: cooperative, A&O X 3, no acute distress, answers questions appropriately - Head Head exam: Present: atraumatic, normocephalic - Eye Eye exam: Present: PERRL, conjuntiva pink, sclera anicteric Pupils: Present: PERRL - Neck Neck exam general surgery: Present: supple, trachea midline. Absent: lymphadenopathy - Respiratory Respiratory exam: Present: CTAB. Absent: accessory muscle use, rales, rhonchi, wheezes - Cardiovascular Cardiovascular exam: Present: RRR, +S1, +S2. Absent: diastolic murmur, gallop, rubs, systolic murmur - GI/Abdominal GI/Abdominal exam: Present: normal bowel sounds, soft, no peritoneal signs. Absent: distended, tenderness - Extremities Exam Extremities exam: Present: warm, radial pulses palpable and symmetrical. Absent : calf tenderness, cyanotic, pedal edema - Neurological Exam Neurological exam: Present: CN II-XII intact, oriented X3, no focal deficits. Absent: pronater drift, facial droop, speech deficit - Skin Skin exam: Present: dry, intact Internal Medicine: Result - Labs CBC & Chem 7: 02/13/18 05:55 02/13/18 05:55 Labs: Short CBC 02/13/18 Range/Units 05:55 WBC 4.7 (4.3-11.1) K/mcL Hgb 13.1 (11.5-15.4) g/dL Hct 38.1 (35.3-44.9) % Plt Count 247 (140-400) K/mcL BMP 02/13/18 05:55 Sodium 144 Potassium 3.5 Chloride 109 H Carbon Dioxide 26 BUN 17 Creatinine 0.73 Glucose 83 Calcium 8.8 - ABG Interpretation ABG results: PT/INR, D-dimer PT 10.8 Seconds (9.4-12.1) 02/12/18 18:06 Consult Discharge Plan - Plan Referrals: Marcos Cornell MD [Primary Care Provider] -
[2018-02-14 04:42] LABS: Hemoglobin 13.4 g/dL (11.5-15.4); Mean Corpuscular HGB Conc 34.4 g/dL (31.6-35.5); Mean Corpuscular Hemoglobin 31.1 pg (28.0-33.3); Mean Corpuscular Volume 90.5 fL (83.0-100.0); Mean Platelet Volume 10.2 fL (9.4-12.4); Platelet Count 241 K/mcL (140-400); Red Blood Count 4.31 M/mcL (3.82-4.97); Red Cell Distribution Width 12.7 % (11.5-14.5)
[2018-02-14 05:04] LABS: BUN/Creatinine Ratio 24 (6-26); Blood Urea Nitrogen 21 mg/dL (8-23); Calcium 8.7 mg/dL (8.6-10.3); Carbon Dioxide 26 mEq/L (23-29); Chloride 109 mEq/L (98-107); Glucose 88 mg/dL (70-105); Osmolality,Calculated 296 (280-300); Potassium 3.6 mEq/L (3.5-5.1); Sodium 142 mEq/L (136-145); eGFR For African Americans > 60 (> 60); eGFR For Non-African Americans > 60 (> 60)
[2018-02-14] MEDS: *HR* Heparin 5,000 UNIT/ML VIAL SQ SCH (05:44)
[2018-02-14 07:19] VITALS: BP 123/73
--- NOTE | 2018-02-14 09:03 | Discharge Summary ---
Orders not resulted at time of discharge: Pending orders 02/14/18 03:54 Hgb A1C AM 39902/15/18 04:00 BMP [Basic Metabolic Panel] AM 0400 Complete Blood Count w/o Diff [HEME] AM 04002/16/18 04:00 BMP [Basic Metabolic Panel] AM 0400 Complete Blood Count w/o Diff [HEME] AM 04002/17/18 04:00 BMP [Basic Metabolic Panel] AM 0400 Complete Blood Count w/o Diff [HEME] AM 04002/18/18 04:00 BMP [Basic Metabolic Panel] AM 0400 Complete Blood Count w/o Diff [HEME] AM 0400 Date of Encounter: 02/14/18 Time of Encounter: 09:01 - Discharge Diagnosis (1) Slurred speech Priority: Primary Status: Resolved Assessment and Plan: presented to ER after patient left a voicemail for son and he was concerned that her speech was slurred; unwitnessed and person and per H&P slurred speech was resolved upon his arrival to her home however he was concerned therefore brought her to the hospital. Patient denied slurred speech and no slurred speech noted throughout hospitalization. Head CT nonacute. Brain MRI negative. No further workup indicated at this time. Recommend follow-up outpatient with PCP. (2) Nausea Priority: Primary Status: Resolved Assessment and Plan: Possibly secondary to known GERD. Now resolved. Tolerating regular diet, no abdominal pain. Continue home PPI (3) Dizzy Priority: Primary Status: Resolved Assessment and Plan: Details unclear but patient reportedly complained of being dizzy in ED (patient later stated she didn't recall being dizzy). No evidence of orthostasis. Resolved without intervention. Hospital course: Please see assessment and plan for Hospital course Discharge discussed with: patient (Seen and examined at bedside. Sitting up in bed eating breakfast. Says she feels back to baseline and once to discharge home today. She has no complaints. Specifically denies lightheadedness, dizziness, nausea. No abdominal pain. No chest pain or shortness of breath. No headache, no slurred speech.) - Time Spent with Patient Total time spent providing and/or coordinating discharge services: - Discharge Medications Home Medications: Fluticasone Propionate 2 spr NS DAILY 02/12/18 [History] Montelukast [Singulair] 10 mg PO DAILY 02/12/18 [History] Omeprazole [PriLOSEC] 40 mg PO DAILY PRN 02/12/18 [History] Allergies/Adverse Reactions: 3 Allergy/AdvReac Type Severity Reaction Status Date / Time No Known Allergies Allergy Verified 01/03/18 12:01 Date of admission: 02/12/18 20:12 Primary care physician: Marcos Cornell MD Discharging clinician: Elizabeth Gupta Anticipated date of discharge: 02/14/18 - Constitutional Vitals: Temp Pulse Resp BP Pulse Ox 98.1 F 65 16 123/73 94 02/14/18 07:18 02/14/18 07:18 02/14/18 07:18 02/14/18 07:18 02/14/18 07:18 General appearance: Present: cooperative, A&O X 3, no acute distress, answers questions appropriately - Head Head exam: Present: atraumatic, normocephalic - Eye Eye exam: Present: PERRL, conjuntiva pink, sclera anicteric Pupils: Present: PERRL - Neck Neck exam general surgery: Present: supple, trachea midline. Absent: lymphadenopathy - Respiratory Respiratory exam: Present: CTAB. Absent: accessory muscle use, rales, rhonchi, wheezes - Cardiovascular Cardiovascular exam: Present: RRR, +S1, +S2. Absent: diastolic murmur, gallop, rubs, systolic murmur - GI/Abdominal GI/Abdominal exam: Present: normal bowel sounds, soft, no peritoneal signs. Absent: distended, tenderness - Extremities Exam Extremities exam: Present: warm, radial pulses palpable and symmetrical. Absent : calf tenderness, cyanotic, pedal edema - Neurological Exam Neurological exam: Present: CN II-XII intact, oriented X3, no focal deficits. Absent: pronater drift, facial droop, speech deficit - Skin Skin exam: Present: dry, intact - Patient Status Disposition: Home, Self-Care Condition: Good Functional capacity at discharge: uses cane/walker Overall status at discharge: patient is back to baseline - Discharge Instructions Instructions: Dizziness (GEN) Follow Up With: Marcos Cornell MD [Primary Care Provider] - - Diet and Activity Activity: increase activity as tolerated Diet: advance to your usual diet
[2018-02-15 12:15] LABS: Estimated Average Glucose 114 mg/dl; Hemoglobin A1C 5.6 %
== END 2018-02-14 10:30 | disposition home or self-care (01) ==
LOC: EMEROO 17:27 → 3BNU 17:27
PROVIDERS: ADMIT Family Medicine; ATTEND Family Medicine